=== PATIENT | male | born 1960 | race Caucasian/White ===

== ENCOUNTER → 2021-05-01 11:50 | Outpatient (CLI) | payer BC, SELFPAY ==
--- NOTE | ~2021-05-01 | XR_ITS ---
EXAMINATION: XR lumbar spine 2-3V DATE: 05/01/2021 12:40 INDICATION: Low back pain TECHNIQUE: Anteroposterior and lateral views of the lumbar spine, and cone-down lateral view of the l umbosacral junction were obtained. COMPARISON: None. FINDINGS: There is no fracture, dislocation, or subluxation. Mild loss of intervertebral disc space h eight is present throughout the lumbar spine. The vertebral body heights are normal. There is moderat e facet osteoarthritis of the lower lumbar spine. Small degenerative osteophytes project from the ant erior endplates of multiple vertebral bodies. IMPRESSION: 1. Mild lumbar spondylosis without acute findings. Reviewed, dictated and finalized at location A.
--- NOTE | ~2021-05-01 | XR_ITS ---
EXAMINATION: XR pelvis 1-2V INDICATION: Low back pain TECHNIQUE: AP view of the pelvis is obtained. COMPARISON: None available FINDINGS: Bone alignment is normal. There is no fracture. There is moderate to severe osteoarthritis of the hips. Phleboliths are noted in the right pelvis. IMPRESSION: 1. 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 Reviewed, dictated and finalized at location A.
--- NOTE | ~2021-05-01 | XR_ITS ---
EXAMINATION: XR thoracic spine 2V DATE: 05/01/2021 12:40 INDICATION: Low back pain TECHNIQUE: AP, lateral and lateral swimmer's views of the thoracic spine were obtained. COMPARISON: None. FINDINGS: There is levocurvature of the lower thoracic spine. No fracture is identified. The vertebra l body heights and alignment are maintained. There are bridging osteophytes at multiple levels in the spine, consistent with diffuse idiopathic skeletal hyperostosis (DISH). There is mild loss of interv ertebral disc space height at multiple levels. IMPRESSION: 1. Diffuse idiopathic skeletal hyperostosis (DISH). Reviewed, dictated and finalized at location A.
== END ==
DX: M17.0 Bilateral primary osteoarthritis of knee (principal); M48.14 Ankylosing hyperostosis [Forestier], thoracic region; M47.816 Spondylosis without myelopathy or radiculopathy, lumbar region
CPT/HCPCS: 72070; 72100; 72170